=== PATIENT | male | born 1955 | race Two or more races ===

== ENCOUNTER 2018-12-24 16:09 | Emergency (ER) | payer SELFPAY ==
[~2018-12-24] VITALS: Ht 157.5 cm; Wt 63.5 kg
[2018-12-24 16:12] VITALS: BP 110/63
--- NOTE | 2018-12-24 16:12 | NUR ---
ED Nurse Note: Pt [place] RA#[id number] from front of a store due to ETOH. Per EMT patient was found with an empty bottle of vodka. No trauma noted. Pt is A&O x3, V/S stable with no s/s of acute distress noted at this time. Pt denies pain. Pt is connected to the night monitor with bed placed in the lowest position. Per EMT BS 148mg/dL.
--- NOTE | 2018-12-24 16:25 | Emergency Room Report ---
History of Present Illness General Chief Complaint: Alcohol Intoxication Source: Patient, EMS Present Illness HPI Patient is a 63-year-old male brought in by EMS after increased altered mental status. Patient was found lying down on the street. He denies any current complaints. Patient states that he wants something to drink. He denies any locations of current discomfort. Patient reports drinking alcohol. Allergies: Coded Allergies: No Known Allergies (Unverified , 12/24/18) Patient History Past Medical History: see triage record Reviewed Nursing Documentation: PMH: Agreed; PSxH: Agreed Nursing Documentation-PMH Past Medical History: No Stated History Review of Systems All Other Systems: negative except mentioned in HPI Physical Exam Vital Signs Date Time Temp Pulse Resp B/P (MAP) Pulse Ox O2 Delivery O2 Flow Rate FiO2 12/24/18 16:09 98.2 106 16 110/63 (79) 99 Room Air General Appearance: no apparent distress, alert, GCS 15, Chronically Ill Head: normocephalic, atraumatic ENT: hearing grossly normal, normal voice Neck: full range of motion, supple Respiratory: lungs clear, no respiratory distress, speaking full sentences Cardiovascular #1: normal inspection Gastrointestinal: normal inspection, non tender, soft Musculoskeletal: normal inspection, normal range of motion Neurologic: normal inspection, alert, responsive, other - slurred speech Psychiatric: normal inspection, mood/affect normal Skin: normal color, no rash Lymphatic: normal inspection Medical Decision Making Diagnostic Impression: Primary Impression: Acute alcoholic intoxication ER Course Patient presented for altered mental status. Differential diagnosis included but was not limited to ischemic stroke, subarachnoid hemorrhage, hypoglycemia, electrolyte abnormality, neurodegenerative disorder, urinary tract infection, hypoxemia. Patient appears to be intoxicated with alcohol. There are no external signs of trauma. Patient's speech appears mildly slurred Laboratory testing was ordered due to patient's history of regular alcohol use. Patient was given IV thiamine. Patient was able to tolerate feeding in the emergency department Patient was noted to have initially confused mental status. Patient was observed over time in the emergency department. Patient was seen and examined by me in the emergency department. No life- threatening signs or symptoms were identified. Patient is stable for discharge. Patient was advised to stop drinking alcohol and to followup for outpatient therapy for alcohol treatment. Last Vital Signs Date Time Temp Pulse Resp B/P (MAP) Pulse Ox O2 Delivery O2 Flow Rate FiO2 12/24/18 16:09 98.2 106 16 110/63 (79) 99 Room Air Status: improved Disposition: HOME, SELF-CARE Condition: Stable Scripts No Active Prescriptions or Reported Meds Josh Camacho MD Dec 24, 2018 16:25
[2018-12-24] MEDS ORDERED: Thiamine HCl 100 MG in D5W 55 ML IVPB ONE (17:00)
[2018-12-24 17:05] LABS: BASOPHILS % (AUTO) 1.4 % (0.0-2.0); EOSINOPHILS % (AUTO) 4.6 % (0.0-3.0); HEMOGLOBIN 13.3 G/DL (14.2-18.0); LYMPHOCYTES % (AUTO) 12.4 % (20.0-45.0); MEAN CORPUSCULAR VOLUME 95 FL (80-99); MONOCYTES % (AUTO) 8.4 % (1.0-10.0); NEUTROPHILS % (AUTO) 73.2 % (45.0-75.0); PLATELET COUNT 310 K/UL (150-450); RED CELL DISTRIBUTION WIDTH 13.1 % (11.6-14.8); WHITE BLOOD COUNT 6.6 K/UL (4.8-10.8)
[2018-12-24 17:17] LABS: ANION GAP 12 mmol/L (5-15); BLOOD UREA NITROGEN 8 mg/dL (7-18); CALCIUM 8.7 MG/DL (8.5-10.1); CARBON DIOXIDE 25 MMOL/L (21-32); CHLORIDE 110 MMOL/L (98-107); CREATININE 0.7 MG/DL (0.55-1.30); POTASSIUM 3.5 MMOL/L (3.5-5.1); SODIUM 147 MMOL/L (136-145)
[2018-12-24 18:12] VITALS: BP 115/69
--- NOTE | 2018-12-24 19:13 | NUR ---
HAND-OFF: Report given to MARIJA Mejia.
--- NOTE | 2018-12-24 19:30 | NUR ---
ED Nurse Note: Recieved report from am nurse to resume care, pt is here for etoh intoxication, pt is in bed awake, alert and oriented x 4, pt is calm and cooperative, pt clothing is dirty and discheveled and covered with urine, pt has patent iv line, v/s taken, pt denies pain, no sob or labored breathing, pt states he is not homeless and gives address on [facility], pt asking to go home due to time, MD informed, will resume care and prepare for discharge.
[2018-12-24 19:35] VITALS: BP 119/71
[2018-12-24 20:30] VITALS: BP 125/67
[2018-12-24 20:45] VITALS: BP 125/67
--- NOTE | 2018-12-24 20:45 | NUR ---
ER DISCHARGE NOTE: Patient is cleared to be discharged per ERMD, pt is aox4, on room air, with stable vital signs. pt was given dc and prescription instructions, pt was able to verbalize understanding, pt id band and iv site removed without complications. pt is able to ambulate with steady gait. pt took all belongings. pt given clean,dry clothes and shoes, pt is very thankful, declines resources need or mental healtha nd continues to state he is not homeless, pt assisted to bathroom and left after coming out and forgot to sign papers.
== END 2018-12-24 20:45 | disposition home or self-care (01) ==
LOC: EDBD 16:09 → EMR 17:40
DX: F10.129 Alcohol abuse with intoxication, unspecified (principal)
CPT/HCPCS: 36415; 80048; 85025; 96365; 96367; 99284

== ENCOUNTER 2019-07-18 13:24 | Emergency (ER) | payer SELFPAY ==
[~2019-07-18] VITALS: Ht 165.1 cm; Wt 72.6 kg
--- NOTE | 2019-07-18 13:35 | NUR ---
came to er by rescue due to alcohol intoxication from the street patient also has abrarion on his forehead
[2019-07-18] MEDS ORDERED: Tetanus/Diptheria/Pertussis IM ONE (13:45)
[2019-07-18 13:58] VITALS: BP 170/82
--- NOTE | 2019-07-18 14:53 | Diagnostic Imaging Report ---
Indications: Trauma, status post fall Technique: Spiral acquisitions obtained through the brain. Angled axial and coronal 5 x 5 mm slices were reconstructed. Total dose length product 12 5 mGycm. CTDI vol(s) 53 mGy. Dose reduction achieved using automated exposure control Comparison: Findings: There is a high right parietal scalp hematoma. There is a right periorbital scalp contusion. No acute intracranial hemorrhage or edema. No mass effect nor midline shift. Normal garnica-white differentiation. There is minimal age-related enlargement of the ventricles and extra-axial CSF spaces. There is some ethmoid sinus opacification. There is medial displacement of the medial right orbital wall. There is mucosal disease in the bilateral maxillary sinuses. The optic globes are intact. Impression: Right periorbital and right high parietal extracranial scalp contusions. Negative for acute intracranial bleed or mass effect. Mild age-related volume loss The CT scanner at [facility] is accredited by the [employer] and the scans are performed using protocols designed to limit radiation exposure to as low as reasonably achievable to attain images of sufficient resolution adequate for diagnostic evaluation.
--- NOTE | 2019-07-18 15:16 | Emergency Room Report ---
History of Present Illness General Chief Complaint: Alcohol Intoxication Source: Patient Present Illness HPI 64-year-old male presents ED complaining of status post alcohol intoxication. Found down per EMS. Admits to alcohol use. States he has been falling. Has abrasions to face. Denies pain. Denies headache or nausea or vomiting. Tetanus unknown. Denies drug use. No other aggravating relieving factors. Denies any other associated symptoms COVID-19 risk:Travel to affect: No Has patient experienced olivarez: No Allergies: Coded Allergies: No Known Allergies (Unverified , 12/24/18) Patient History Past Medical History: none Past Surgical History: none Pertinent Family History: none Social History: Reports: alcohol use; Denies: smoking, drug use Immunizations: UTD Reviewed Nursing Documentation: PMH: Agreed; PSxH: Agreed Nursing Documentation-PMH Past Medical History: No Stated History Review of Systems All Other Systems: limited Physical Exam Vital Signs Date Time Temp Pulse Resp B/P (MAP) Pulse Ox O2 Delivery O2 Flow Rate FiO2 07/18/19 13:15 98.4 84 16 170/82 (111) 99 Room Air Sp02 EP Interpretation: reviewed, normal General Appearance: no apparent distress, GCS 15, non-toxic, other - intoxicated Head: normocephalic, other - abrasions to face Eyes: bilateral eye normal inspection, bilateral eye PERRL ENT: hearing grossly normal, normal pharynx, no angioedema, normal voice Neck: full range of motion, supple/symm/no masses Respiratory: chest non-tender, lungs clear, normal breath sounds, speaking full sentences Cardiovascular #1: regular rate, rhythm, no edema Cardiovascular #2: 2+ carotid (R), 2+ carotid (L), 2+ radial (R), 2+ radial (L) , 2+ dorsalis pedis (R), 2+ dorsalis pedis (L) Gastrointestinal: normal bowel sounds, non tender, soft, non-distended, no guarding, no rebound Rectal: deferred Genitourinary: normal inspection, no CVA tenderness Musculoskeletal: back normal, normal range of motion, gait/station normal, non- tender Neurologic: motor strength/tone normal, other - intoxicated Psychiatric: other - intoxicated Reflexes: 3+ bicep (R), 3+ bicep (L), 3+ tricep (R), 3+ tricep (L), 3+ knee (R) , 3+ knee (L) Skin: abrasion - abrasions to face Lymphatic: no adenopathy Medical Decision Making Diagnostic Impression: Primary Impression: Head injury Qualified Codes: S09.90XA - Unspecified injury of head, initial encounter Additional Impression: Acute alcoholic intoxication Qualified Codes: F10.929 - Alcohol use, unspecified with intoxication, unspecified ER Course Hospital Course 64-year-old M presents ED with ETOH + fall. abrasions to face Differential diagnoses include: skull fx, intracranial injury, concussion Clinical course Patient placed on stretcher. After initial history and physical I ordered CT head and TDAP CT head shows no acute process. And allowed to sleep. Observed on spring layer with stable vitals. Protecting airway. Now awake alert oriented x3. Walking without difficulty. Clinically sober. Discharged to home. Safe for discharge for close outpatient follow-up. I will provide referrals Diagnosis - head injury, alcohol intoxication Stable and discharged to home. Followup with PMD. Return to ED if symptoms recur or worsen CT/MRI/US Diagnostic Results CT/MRI/US Diagnostic Results : Imaging Test Ordered: CT Head Impression no acute process Last Vital Signs Date Time Temp Pulse Resp B/P (MAP) Pulse Ox O2 Delivery O2 Flow Rate FiO2 07/18/19 13:58 80 18 07/18/19 13:58 98.4 170/82 99 Room Air Status: improved Disposition: HOME, SELF-CARE Condition: Stable Scripts No Active Prescriptions or Reported Meds Jaun London MD Jul 18, 2019 15:16
[2019-07-18 18:12] VITALS: BP 162/79
--- NOTE | 2019-07-18 18:12 | NUR ---
ER DISCHARGE NOTE: Patient is cleared to be discharged per Dr. London, pt is aox4, on room air, with stable vital signs. pt was given dc and prescription instructions, pt was able to verbalize understanding, pt id band and iv site removed without complications. pt is able to ambulate with steady gait. pt took all belongings.
== END 2019-07-18 18:12 | disposition home or self-care (01) ==
LOC: EDBD 13:24 → EMR 14:29
DX: S09.90XA Unspecified injury of head, initial encounter (principal); F10.929 Alcohol use, unspecified with intoxication, unspecified; S00.81XA Abrasion of other part of head, initial encounter; W19.XXXA Unspecified fall, initial encounter; Y92.9 Unspecified place or not applicable; Z23 Encounter for immunization
CPT/HCPCS: 70450; 90471; 90715; 99284